=== PATIENT | male | born 1995 | race American Indian/Alaskan Native ===

== ENCOUNTER 2016-10-13 16:06 | Emergency (ER) | payer SELFPAY ==
--- NOTE | 2016-10-13 19:18 | Emergency Department Report ---
Entered by MICAELA GRACE, acting as scribe for YAKELIN JIMENEZ NP. - General Chief complaint: Skin/Abscess/Foreign Body Stated complaint: BUMP ON GENTIAL Time Seen by Provider: 10/13/16 18:46 Source: patient Mode of arrival: Ambulatory Limitations: No Limitations - History of Present Illness Initial comments: Patient is a 21 y.o. male who presents to ED for evaluation of a hard, quarter- sized bump to the left scrotum that he first noticed yesterday, two days after shaving his genital area. Patient denies pain associated with the bump and denies ever experiencing similar sx. He denies taking any medications at home. He denies fever, chills, or N/V, as well as a history of abscesses or boils. PT states the bump drained today while he was at work. PT States that his pain has decreased since the bump drained. PT reports drainage from site. MD complaint: abscess/boil (to the left scrotum) -: Gradual Location: genitals Severity scale (0 -10): 0 Consistency: now resolved (pain ) Improves with: other (after bumped drained ) Associated symptoms: denies other symptoms Treatments Prior to Arrival: none - Related Data Previous Rx's Medication Instructions Recorded Last Taken Type Ibuprofen [Motrin] 600 mg PO Q8H PRN #15 tablet 10/13/16 Unknown Rx Mupirocin [Bactroban 2%] 1 applic TP TID 5 Days 10/13/16 Unknown Rx Sulfamethoxazole/Trimethoprim 1 each PO BID #14 tablet 10/13/16 Unknown Rx [Bactrim DS TAB] Allergies Allergy/AdvReac Type Severity Reaction Status Date / Time No Known Allergies Allergy Unverified 10/13/16 16:26 Abscess Boil HPI - HPI Chief Complaint: Skin/Abscess/Foreign Body Stated Complaint: BUMP ON GENTIAL Time Seen by Provider: 10/13/16 18:46 Home Medications: Previous Rx's Medication Instructions Recorded Last Taken Type Ibuprofen [Motrin] 600 mg PO Q8H PRN #15 tablet 10/13/16 Unknown Rx Mupirocin [Bactroban 2%] 1 applic TP TID 5 Days 10/13/16 Unknown Rx Sulfamethoxazole/Trimethoprim 1 each PO BID #14 tablet 10/13/16 Unknown Rx [Bactrim DS TAB] Allergies/Adverse Reactions: Allergies Allergy/AdvReac Type Severity Reaction Status Date / Time No Known Allergies Allergy Unverified 10/13/16 16:26 ED Review of Systems Comment: All other systems reviewed and negative Constitutional: denies: chills, diaphoresis, fever, malaise Eyes: denies: eye pain ENT: denies: ear pain, throat pain Respiratory: denies: cough, orthopnea, shortness of breath, wheezing Cardiovascular: denies: chest pain, palpitations Gastrointestinal: denies: abdominal pain, nausea, vomiting, diarrhea Genitourinary: other (Positive for bump to scrotum). denies: urgency, dysuria, frequency, hematuria, discharge, testicular pain Musculoskeletal: denies: back pain, joint swelling, arthralgia, myalgia Skin: other (Positive for bump to scrotum). denies: rash, pruritus Neurological: denies: headache, weakness, paresthesias Psychiatric: denies: anxiety, depression ED Past Medical Hx - Past Medical History Previous Medical History?: No Additional medical history: Patient denies PMHx of abscess or boils. - Surgical History Past Surgical History?: No - Social History Smoking Status: Never Smoker Substance Use Type: None - Medications Home Medications: Home Medications Medication Instructions Recorded Confirmed Last Taken Type Ibuprofen [Motrin] 600 mg PO Q8H PRN #15 tablet 10/13/16 Unknown Rx Mupirocin [Bactroban 2%] 1 applic TP TID 5 Days 10/13/16 Unknown Rx Sulfamethoxazole/Trimethoprim 1 each PO BID #14 tablet 10/13/16 Unknown Rx [Bactrim DS TAB] ED Physical Exam - General Limitations: No Limitations General appearance: alert, in no apparent distress - Head Head exam: Present: atraumatic, normocephalic - Eye Eye exam: Present: normal appearance, PERRL, EOMI. Absent: scleral icterus, conjunctival injection Pupils: Present: normal accommodation - ENT ENT exam: Present: normal orophraynx, mucous membranes moist, normal external ear exam - Neck Neck exam: Present: normal inspection, full ROM. Absent: tenderness, meningismus, lymphadenopathy, thyromegaly - Respiratory Respiratory exam: Present: normal lung sounds bilaterally. Absent: respiratory distress, wheezes, rales, rhonchi, accessory muscle use (CTAB. Normal work of breathing. ) - Cardiovascular Cardiovascular Exam: Present: regular rate, normal rhythm. Absent: systolic murmur, diastolic murmur, rubs, gallop - GI/Abdominal GI/Abdominal exam: Present: soft, normal bowel sounds. Absent: distended, tenderness, guarding, rebound, rigid - Rectal Rectal exam: Present: deferred - exam: Present: other (entrepreneur at bedside ). Absent: testicular tenderness , urethral discharge, scrotal swelling External exam: Present: other (Small, 0.5 cm open wound without drainge to the left scrotum. ). Absent: normal external exam, swelling, lacerations, ecchymosis, bleeding - Expanded Exam Expanded Male exam: Absent: penile swelling, erythema, priapism - Extremities Exam Extremities exam: Present: normal inspection, full ROM, normal capillary refill. Absent: tenderness - Back Exam Back exam: Present: normal inspection, full ROM - Neurological Exam Neurological exam: Present: alert, oriented X3 - Psychiatric Psychiatric exam: Present: normal affect, normal mood - Skin Skin exam: Present: warm, dry, normal color. Absent: rash, diaphoretic, erythema, vesicles ED Course Vital Signs 10/13/16 16:26 Temperature 98.4 F Pulse Rate 63 Respiratory 17 Rate Blood Pressure 130/84 O2 Sat by Pulse 98 Oximetry - Reevaluation(s) Reevaluation #1: 10/13/16 19:17 PT aware of dx and plan of care. PT has no questions at this time. - Pulse Oximetry Interpretation Digit-Finger Initial Pulse Oximetry Readin Actions Taken: none ED Medical Decision Making - Differential Diagnosis abscess, mass Critical Care Time: No ED Disposition Clinical Impression: Abscess Disposition: DC-01 TO HOME OR SELFCARE Is pt being admited?: No Does the pt Need Aspirin: No Condition: Stable Instructions: Abscess (ED) Additional Instructions: No shaving at this time Change your razor or your clipper head Finish all antibiotics Return to the ED if worsening, fevers, chills, nausea, vomiting, increase in swelling or pain Prescriptions: Ibuprofen [Motrin] 600 mg PO Q8H PRN #15 tablet PRN Reason: Pain Mupirocin [Bactroban 2%] 1 applic TP TID 5 Days Sulfamethoxazole/Trimethoprim [Bactrim DS TAB] 1 each PO BID #14 tablet Referrals: [facility] [Outside] - 3-5 Days JOSE FLAHERTY MD [Staff Physician] - 3-5 Days Time of Disposition: 19:17 This documentation as recorded by the LESLY nova KELLY,accurately reflects the service I personally performed and the decisions made by me,YAKELIN JIMENEZ , RN LABOR DELIVERY.
[2016-10-13 19:35] VITALS: BP 143/76
== END 2016-10-13 19:34 | disposition home or self-care (01) ==
LOC: ED 16:06
DX: N49.2 Inflammatory disorders of scrotum (principal)
CPT/HCPCS: 99282